=== PATIENT | male | born 2000 | race Hispanic/Latino ===

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

== ENCOUNTER 2020-07-27 15:20 | Emergency (ER) | payer MEDICAID, SELFPAY ==
[2020-07-27 15:21] VITALS: BP 130/56; PULSE 99; RESP 18; TEMP 36.1; O2SAT 99; BMI 32.5
--- NOTE | 2020-07-27 15:54 | ED.VISSUMM ---
- ER Visit Summary Date of Service: 07/27/20 Chief Complaint: Left knee pain History of Present Illness: The patient is a 20 M presenting with left knee pain. Yesterday he slipped and fell on ice. He hit his left knee. He has been able to ambulate with pain. He denies hitting his head or losing consciousness. He tried ibuprofen at home. He woke up this morning and had persistent pain in his left knee. Denies other injuries. Physical Examination: Vitals are stable. Patient is afebrile. Alert no acute distress. HEENT exam is unremarkable. Neck is nontender Lungs are clear and equal bilaterally. Heart is regular rate and rhythm. Extremities left anterior knee tenderness with abrasion. Active full range of motion. Extensor mechanism intact. Normal distal pulses. Skin is warm and dry. Remainder of exam is unremarkable. Emergency Department Course and Treatment: Ice pack was applied. Left knee x-ray read by myself and radiology shows small joint effusions. No demonstrated fracture. Patient was given crutches. Advised to ice and elevate. Given prescription for Naprosyn. Advised to follow-up with primary care physician. Advised return to the ED for worsening complaints Disposition: Discharge home Impression: Left knee contusion This note was generated with [employer] dictation software. It may contain incorrect words, spelling, and punctuation that were not noted in review of the chart prior to signing ED Disposition - Plan for ED Patient: Disposition: Home or Assisted Living Instructions: ED Knee Sprain Prescriptions: Naproxen [Naprosyn] 500 mg PO BID PRN #20 tab Prescription Printed Referrals: Сергей Mora III, MD [STAFF PHYSICIAN] - Tejinder Kelly MD [Primary Care Provider] -
--- NOTE | 2020-07-27 16:02 | RAD_ITS ---
EXAM: XR LEFT KNEE COMPLETE, 4 OR MORE VIEWS CLINICAL INDICATION: PAIN S/P FALL, ABRASION TO KNEE TECHNIQUE: Four or more views of the left knee. This report was created using [employer] report generation technology. COMPARISON: None. FINDINGS: BONES/JOINTS: Small joint effusion. No demonstrated fracture. No sclerotic or destructive changes observed. SOFT TISSUES: Unremarkable. No soft tissue swelling or gas. No radiopaque foreign body. RAD/Knee 4 or More Views IMPRESSION: Small joint effusion. No demonstrated fracture. Electronically Signed: Ludwin Mayer MD ([place]) at 16:21 EST , Service support ,
--- NOTE | 2020-07-27 16:23 | ED.DEP ---
ED Disposition - Plan for ED Patient: Instructions: ED Knee Sprain Prescriptions: Naproxen [Naprosyn] 500 mg PO BID PRN #20 tab Prescription Printed Referrals: Tejinder Kelly MD [Primary Care Provider] - Сергей Mora III, MD [STAFF PHYSICIAN] -
[2020-07-27 16:42] VITALS: BP 138/84; RESP 17; TEMP 36.9; O2SAT 98
== END 2020-07-27 16:43 | disposition home or self-care (01) ==
LOC: ED 16:41
PROVIDERS: Emergency Provider Emergency Medicine; PCP Pediatrics
DX: S80.02XA Contusion of left knee, initial encounter (principal); Z72.0 Tobacco use; W00.0XXA Fall on same level due to ice and snow, initial encounter; Y93.01 Activity, walking, marching and hiking; Y92.89 Other specified places as the place of occurrence of the external cause; Y99.8 Other external cause status
CPT/HCPCS: 73564; 99283